=== PATIENT | female | born 1940 | race Caucasian/White ===

== ENCOUNTER → 2024-03-12 12:58 | Outpatient (REF) | payer MEDICARE, OTHER, SELFPAY | LOC: WDC 12:58 | PROVIDERS: ATTENDING PHYSICIAN Nurse Practitioner; FAMILY PHYSICIAN Internal Medicine | DX: Z12.31 Encounter for screening mammogram for malignant neoplasm of breast (principal) | CPT/HCPCS: 77063; 77067 ==

== ENCOUNTER → 2024-11-05 13:48 | Outpatient (REF) | payer MEDICARE, OTHER, SELFPAY ==
[2024-11-05 14:45] LABS: % Basophils 0.6 % (0-2); % Eosinophils 1.7 % (0-6); % Immature Granulocytes 0.4 % (0-0.5); % Monocytes 10.6 % (1.7-9.3); % Neutrophils 63.7 % (42.2-75.2); Absolute Eosinophils 0.1 10^3/uL (0-0.7); Absolute Lymphocytes 1.2 10^3/uL (1.2-3.4); Absolute Monocytes 0.6 10^3/uL (0.1-0.6); Absolute Neutrophils 3.4 10^3/uL (1.4-6.5); Hematocrit 42.4 % (37.0-47.0); Hemoglobin 13.8 g/dL (12.0-16.0); Mean Corp Hgb Conc. 32.5 g/dL (33.0-37.0); Mean Corpuscular Hgb 31.4 pg (27.0-31.0); Mean Corpuscular Volume 96.4 fL (81.0-99.0); Mean Platelet Volume 9.5 fL (7.4-10.4); Nucleated Red Blood Cells % 0 %; Platelet Count 246 10^3/uL (130-400); Red Cell Dist. Width 13.2 % (11.5-14.5); White Blood Cell Count 5.3 10^3/uL (4.8-10.8)
[2024-11-05 15:24] LABS: ALT (SGPT) 15 U/L (0-35); AST (SGOT) 22 U/L (14-36); Albumin 4.9 g/dl (3.5-5.0); Alkaline Phosphatase 93 U/L (38-126); Blood Urea Nitrogen 14 mg/dl (7-17); Calcium 9.9 mg/dl (8.4-10.2); Carbon Dioxide 31 mmol/L (22-30); Chloride 101 mmol/L (98-107); Glucose 90 mg/dl (70-99); Potassium 4.6 mmol/L (3.5-5.1); Sodium 140 mmol/L (135-145); Total Bilirubin 0.6 mg/dl (0.2-1.3); eGFR > 60.00
[2024-11-05 15:55] LABS: TSH 1.88 uIU/ml (0.47-4.68)
== END ==
LOC: REG 13:48
PROVIDERS: ATTENDING PHYSICIAN Nurse Practitioner; FAMILY PHYSICIAN Internal Medicine
DX: R00.1 Bradycardia, unspecified (principal); R53.82 Chronic fatigue, unspecified
CPT/HCPCS: 36415; 80053; 84443; 85025

== ENCOUNTER → 2024-11-19 08:19 | Outpatient (REF) | payer MEDICARE, OTHER, SELFPAY | LOC: HWRCS 08:19 | PROVIDERS: ATTENDING PHYSICIAN Nurse Practitioner; FAMILY PHYSICIAN Internal Medicine | DX: I48.0 Paroxysmal atrial fibrillation (principal); I10 Essential (primary) hypertension; R74.8 Abnormal levels of other serum enzymes | CPT/HCPCS: 78452; 93017; A9500; J2785 ==

== ENCOUNTER → 2025-03-07 13:03 | Outpatient (REF) | payer MEDICARE, OTHER, SELFPAY | LOC: RCS 13:03 | PROVIDERS: ATTENDING PHYSICIAN Internal Medicine Cardiovascular Disease; FAMILY PHYSICIAN Internal Medicine | DX: R00.1 Bradycardia, unspecified (principal) | CPT/HCPCS: 93306 ==

== ENCOUNTER → 2025-04-03 14:20 | Outpatient (REF) | payer MEDICARE, OTHER, SELFPAY | LOC: WDC 14:20 | PROVIDERS: ATTENDING PHYSICIAN Nurse Practitioner | DX: Z12.31 Encounter for screening mammogram for malignant neoplasm of breast (principal) | CPT/HCPCS: 77063; 77067 ==

== ENCOUNTER → 2025-04-17 12:59 | Outpatient (REF) | payer MEDICARE, OTHER, SELFPAY ==
[2025-04-17 14:12] LABS: ALT (SGPT) 14 U/L (0-35); AST (SGOT) 19 U/L (14-36); Albumin 4.4 g/dl (3.5-5.0); Alkaline Phosphatase 86 U/L (38-126); Blood Urea Nitrogen 18 mg/dl (7-17); Calcium 10.3 mg/dl (8.4-10.2); Carbon Dioxide 31 mmol/L (22-30); Chloride 106 mmol/L (98-107); Glucose 91 mg/dl (70-99); Potassium 4.7 mmol/L (3.5-5.1); Sodium 138 mmol/L (135-145); Total Protein 7.2 g/dl (6.3-8.2); eGFR > 60.00
== END ==
LOC: REG 12:59
PROVIDERS: ATTENDING PHYSICIAN Nurse Practitioner
DX: I48.0 Paroxysmal atrial fibrillation (principal)
CPT/HCPCS: 36415; 80053

== ENCOUNTER → 2025-05-23 09:11 | Outpatient (REF) | payer MEDICARE, OTHER, SELFPAY ==
[2025-05-23 09:56] LABS: Hematocrit 31.5 % (37.0-47.0); Hemoglobin 9.9 g/dL (12.0-16.0); Mean Corp Hgb Conc. 31.4 g/dL (33.0-37.0); Mean Corpuscular Volume 94.3 fL (81.0-99.0); Nucleated Red Blood Cells % 0 %; Platelet Count 255 10^3/uL (130-400); Red Cell Dist. Width 13.4 % (11.5-14.5)
[2025-05-23 10:34] LABS: ALT (SGPT) 16 U/L (0-35); AST (SGOT) 19 U/L (14-36); Albumin 4.3 g/dl (3.5-5.0); Alkaline Phosphatase 78 U/L (38-126); Blood Urea Nitrogen 15 mg/dl (7-17); Calcium 10.2 mg/dl (8.4-10.2); Carbon Dioxide 28 mmol/L (22-30); Chloride 106 mmol/L (98-107); Glucose 93 mg/dl (70-99); Iron 43 ug/dl (37-170); Potassium 5.0 mmol/L (3.5-5.1); Sodium 139 mmol/L (135-145); Total Protein 7.1 g/dl (6.3-8.2); eGFR > 60.00
[2025-05-23 10:57] LABS: Total Iron Binding Capacity 432 ug/dl (265-497)
[2025-05-23 11:09] LABS: Ferritin 11.4 ng/ml (11.1-264.0)
== END ==
LOC: REG 09:11
PROVIDERS: ATTENDING PHYSICIAN Internal Medicine; REFERRING PHYSICIAN Internal Medicine Cardiovascular Disease
DX: I48.0 Paroxysmal atrial fibrillation (principal); D64.9 Anemia, unspecified
CPT/HCPCS: 36415; 80053; 82728; 83540; 83550; 85025

== ENCOUNTER 2025-05-28 06:44 | Day surgery (SDC) | payer MEDICARE, OTHER, SELFPAY ==
[2025-05-29 06:00] VITALS: BMI 33.5
[2025-05-29 06:37] VITALS: BP 160/75
[2025-05-29 06:52] VITALS: BP 169/71
[2025-05-29 07:07] VITALS: BP 172/79
[2025-05-29 07:10] VITALS: BP 160/75
== END 2025-05-28 09:54 | disposition home or self-care (01) ==
LOC: CATH 06:44
PROVIDERS: ATTENDING PHYSICIAN Internal Medicine Cardiovascular Disease; FAMILY PHYSICIAN Internal Medicine; OTHER PHYSICIAN Internal Medicine Cardiovascular Disease
DX: Z01.810 Encounter for preprocedural cardiovascular examination (principal); I35.8 Other nonrheumatic aortic valve disorders; I48.0 Paroxysmal atrial fibrillation; I10 Essential (primary) hypertension; E78.5 Hyperlipidemia, unspecified
CPT/HCPCS: 93312; 93320; 93325

== ENCOUNTER 2025-05-29 09:46 | Inpatient (IN) | payer MEDICARE, OTHER, SELFPAY ==
[2025-05-29] VITALS (18 sets, daily range): BP systolic 111–161; BP diastolic 54–76; BMI 33.5
[2025-05-29 08:47] LABS: ACT-LR - POC 255 Seconds (116-155)
[2025-05-29 09:06] LABS: ACT-LR - POC 303 Seconds (116-155)
[2025-05-29 09:25] LABS: ACT-LR - POC 327 Seconds (116-155)
[2025-05-29] MEDS: TYLENOL 650 MG PO ×2 (10:55→22:42)
--- NOTE | 2025-05-29 12:01 | ITS.CL.ABL ---
Distance Learning Administrator - Ablation
Ablation
Procedure Report:
ELECTROPHYSIOLOGIC STUDY AND POSSIBLE ABLATION
DATE: May 29, 2025
Primary Care Provider: Talya Robb
INDICATION:
Symptomatic Atrial Fibrillation.
Paroxysmal
HISTORY: See H and P.
Symptomatic AF, poorly controlled with attempted medical therapy
Multiple episodes of epistaxis starting 04/17/2025. Continued to have recurrences despite packing, cauterization, and holding anticoagulation.�
Recurrent rapid atrial fibrillation 05/06/2025 and was hospitalized at [facility]. Started on sotalol and converted to SR
Given the recurrent serious bleeding events she has experienced, she was initially maintained off of anticoagulation. At her office visit May 23, 2025 I instructed her to resume Eliquis 5 mg twice daily to assess safety of at least short-term
anticoagulation and she has had no recurrent epistaxis in the short timeframe. She underwent transesophageal echo May 28, 2025 demonstrating no left atrial appendage thrombus.
HAS-BLED: 2
Age
H/O Bleeding
CHADSVASc: 4
HTN
Age
F Gender
PRESENTING RHYTHM: SR
HISTORY: See H and P.
Symptomatic AF, poorly controlled with attempted medical therapy.
Antiarrhythmic drug therapy: Sotalol 40 mg twice daily
ANTICOAGULATION: Eliquis 5 mg twice daily
'TIME-OUT': called and confirmed.
SEDATION/ANESTHESIA: provided via the anesthesia department using general anesthesia.
PROCEDURE:
Ultrasound Guidance with real-time visualization of needle insertion and vessel patency performed by in for femoral venous Vascular Access.
Under real-time US guidance, the needle was advanced with negative pressure into the vein. The needle was seen entering the vessel lumen with a good return of dark red flow, the syringe was removed, non-pulsatile, dark red blood low was noted and
the wire was passed without difficulty, then the needle was removed. US confirmed the wire was in the vein, not going into an artery,
Images were taken and saved for the patient's permanent record. Imaging findings typical femoral venous anatomy. Direct visualization of needle puncture into the femoral vein was observed and recorded.
3 sheaths were inserted into the right femoral vein.
10 Fr, 10Fr, 7 Fr a 10fr sheath was then exchanged for the 16.8 Fr Faradrive deflectable sheath and dilator over a wire.
A decapolar CS catheter was positioined within the CS for mapping and pacing.
The intracardiac ultrasound catheter was positioned in the RA for continuous intracardiac ultrasound imaging.
Heparin bolus and infusion to target ACT at 300 -350 seconds was administered. Transseptal puncture was performed. This entailed advancing a sheath with dilator into the superior vena cava and withdrawing both (monitoring intracardiac ultrasound,
fluoroscopy and tip pressure) with the tip oriented toward the atrial septum. The fossa ovalis was engaged (indicated by sudden displacement of the sheath tip as well as tenting of the fossa seen on intracardiac ultrasound).
The Evernote transseptal system was used. Left atrial catheter position was confirmed by echocardiographic imaging and fluoroscopy followed by RF delivery using the [employer] system resulting in successful LA access with pressure monitoring
demonstrating LA pressure waveforms (LA mean pressure 13mm Hg). The sheath was advanced over the dilator and positioned in the left atrium.
The Grissom Grid multipolar mapping catheter was initially positioned through the transseptal sheath for high density mapping.
Geometry and voltage mapping was performed using the Grissom multipolar grid catheter. Ensite-X was utilized for three-dimensional electroanatomical mapping.
A 3-D map was created using Ensite-X in Voxel mode. A 3-D reconstructed CT image was compared to the 3-D Navex map to assist in anatomic evaluation, mapping and ablation.
The Evernote PFA catheter and system was used for cardiac ablation. Catheter positioning was guided and confirmed using both I.C.E. and fluoroscopy.
Ablation strategy included PVI as well as mapping for extra PV contributors to atrial fibrillation which would also be targeted if present.
High density electroanatomical three-dimensional mapping demonstrated four PVs: LSPV, LIPV, RSPV, RIPV.
After accomplishing pulmonary venous isolation, mapping identified additional areas likely to be extra PV contributors to atrial fibrillation. These areas demonstrated patchy low voltage as well as complex fractionated electrograms. These areas can
be sites for the formation of rotors which can drive and maintain atrial fibrillation. These areas are known to be significant contributors to initiation and perpetuation of atrial fibrillation.
Additional energy applications/additional ablation sets targeted extra PV contributors to atrial fibrillation.
Targets for additional PFA ablation included:
LA posterior wall targeted with pulsed electric field energy isolating the posterior wall of the left atrium
After ablation of the posterior wall, additional targets were addressed:
LA inferior floor
These areas were ablated using pulsed electric field energy eliminating the extra PV contributors to atrial fibrillation.
Post ablation mapping finds entrance and exit block at each of the pulmonary veins (LSPV, LIPV, RSPV, RIPV), the LA posterior wall and at the additional line at Inferior/floor of the LA rendering the sites no longer able to contribute to atrial
fibrillation.
Programmed electrostimulation including burst atrial pacing as well the delivery of decremental extrastimuli down to atrial effective refractory period and no sustained arrhythmias could be induced.
I.C.E. :
Pre-Ablation Post-Ablation
LVEF: 55% 55%
WMA: None none
Pericardial effusion: None none
LA Pressure mmHg 13 9
COMPLICATIONS:
None
SUMMARY:
- Mapping and ablation to isolate the PVs resulting in electrical isolation of the pulmonary veins
- Additional AF ablation sets X 2 after PVI 2 (LA posterior wall, Inf/floor of the LA posterior wall) resulting in elimination of the targeted extra PV contributors to atrial fibrillation.
- 3-D Electroanatomical Mapping
- Intracardiac Ultrasound
- Ultrasound guidance for vascular access
I discussed today's findings and results with the patient's son, Iggy.
RECOMMENDATIONS:
- Proceed with planned Watchman JERRY occlusion
Copy to: Talya Robb
--- NOTE | 2025-05-29 12:16 | WATCHMAN.MD ---
Watchman Implant
-
WATCHMAN LEFT ATRIAL APPENDAGE CLOSURE DEVICE REPORT
Date: May 29, 2025
Primary Care Provider: Dr. Talya Robb
INDICATION:
Symptomatic Atrial Fibrillation.
Paroxysmal
HISTORY: See H and P.
Symptomatic AF, poorly controlled with attempted medical therapy
Multiple episodes of epistaxis starting 04/17/2025. Continued to have recurrences despite packing, cauterization, and holding anticoagulation.�
Recurrent rapid atrial fibrillation 05/06/2025 and was hospitalized at [facility]. Started on sotalol and converted to SR
Given the recurrent serious bleeding events she has experienced, she was initially maintained off of anticoagulation. At her office visit May 23, 2025 I instructed her to resume Eliquis 5 mg twice daily to assess safety of at least short-term
anticoagulation and she has had no recurrent epistaxis in the short timeframe. She underwent transesophageal echo May 28, 2025 demonstrating no left atrial appendage thrombus.
Watchman Team:
NEGIN: Dr Marilyn M.D.
Implanter: Dr Jason Sinha M.D.
Procedure: Watchman left atrial appendage closure.
(Concomitant after PVI this morning)
The patient was placed under general anesthesia by anesthesia.
A NEGIN probe was placed.
Heparin was administered to goal ACT 350-400 seconds. Fluid bolus was given.
Dr Jason Sinha positioned and deployed the Watchman device.
A 5 Namibian curved pigtail was then substituted for the guidewire through the watchman sheath to the ostium of the left atrial appendage. The 5 Namibian pigtail was advanced into the left atrial appendage and angiography was performed. This allowed
additional measurements assessing left atrial appendage ostium size and JERRY morphology.
The pigtail catheter was removed from the access sheath. A 27 mm Watchman device was flushed and then placed into the watchman access sheath and advanced through the sheath. The Watchman was clamped into the sheath. The device was deployed into
the left atrial appendage.
The PASS criteria were met. The stability tug test was performed and passed. Angiography and transesophageal echocardiogram revealed no leaks nor jets. The position was confirmed on angiography and transesophageal echo and there were no
significant shoulders. Compression ranges from 21% to 26%.
After meeting the PASS release criteria the device was released into the left atrial appendage.
The watchman access sheath was then removed through the transseptal into the IVC. A figure 8 suture closure was performed at the site of the femoral venous puncture and the sheath as it was removed.
Impression:
- Successful Deployment of 27 mm WATCHMAN left atrial appendage closure device
Recommended anticoagulation strategy for this specific patient is:
- Eliquis 5 mg twice daily (given recurrent large epistaxis, will not add aspirin at this time)
- Transesophageal echocardiogram at 3 months post procedure will be used to assess for any device related thrombus, assess for any leaks, and aid in the decision making regarding altering anticoagulation/antiplatelet recommendations.
At post procedure NEGIN leaks > 5mm are significant and require chronic full anticoagulation or consideration for leak closure.
Katherine-device leaks between 3 and 5 mm may also carry an increased risk. These patients will need individualized risk assessment and discussion with Watchman team.
Leaks < 3 mm are generally considered non-significant.
If there is no leak of 3 mm or greater, we will plan to stop oral anticoagulation.
With leak of any size suggestion is to check NEGNI 12 mo out from implant.
While the overall risk of device related infection for Watchman device is very low, we recommend SBE prophylaxis with amoxicillin for the first 6 months after device implantation until the device is more completely endothelialized. After the first
6 months, the risk of infection associated with a device is further reduced and routine antibiotic prophylaxis is not mandatory but can be decided on an individual case basis.
Continue cardiovascular care with Dr. Caty Sung, DYEING MACHINE FEEDER on September 02, 2025
cc:
Dr. Talya Robb
--- NOTE | 2025-05-29 14:24 | PTCARENOTE ---
Received patient at 1320 following PVI and watchman via right femoral vein. Patient maintained flat bedrest x 4 hours, sutures now clipped from the right groin. Right groin dressing is dry and intact, area is soft with no signs of hematoma and a
strong pedal pulse is palpable. Oriented to the room and plan of care, call cardona in reach, waiting for lunch.
--- NOTE | 2025-05-29 16:50 | CM ---
Reviewed chart. Met with Mrs. Thibodeaux to review discharge plans. She states prior to admission she resides alone in a fourth floor apartment with an elevator. She states prior to admission she was independent with ambulation and adls.. She
states she does not have any DME in the home. She states she has a prescription plan with [facility] and uses [facility] pharmacy and mail order. The discharge plan is to return home when medically stable.
[2025-05-29] MEDS: NORVASC 5 MG PO (17:17)
--- NOTE | 2025-05-29 18:34 | PTCARENOTE ---
Patient assisted oob to the chair for dinner, Right groin dressing is dry and intact, VSS. Dr. Sinha in to see the patient, visiting with her family now.
[2025-05-29] MEDS: ELIQUIS 5 MG PO (19:43)
[2025-05-29] MEDS: BETAPACE 40 MG PO (19:43)
--- NOTE | 2025-05-29 22:03 | PTCARENOTE ---
Patient received at change of shift out of bed to the chair. Right groin site with gauze and tegaderm C/D/I. Pedal pulse palpable. The patient endorses some tenderness to the groin site which is soft to palpation and no ecchymosis is present. The
tenderness is currently acceptable to the patient, declines PRN pain medication at this time. Sinus rhythm on telemetry. Oxygen saturation 94-95% on room air. Patient ambulated to the bathroom to void, standby assist. Plan of care discussed. Call
cardona within reach. Care ongoing.
[2025-05-29] MEDS: DESYREL 100 MG PO (22:46)
[2025-05-30 02:53] VITALS: BP 141/55
[2025-05-30 04:07] LABS: Hematocrit 27.9 % (37.0-47.0); Hemoglobin 8.9 g/dL (12.0-16.0); Mean Corp Hgb Conc. 31.9 g/dL (33.0-37.0); Mean Corpuscular Volume 90.9 fL (81.0-99.0); Platelet Count 316 10^3/uL (130-400); Red Cell Dist. Width 14.7 % (11.5-14.5)
[2025-05-30 04:34] LABS: Blood Urea Nitrogen 19 mg/dl (7-17); Calcium 9.8 mg/dl (8.4-10.2); Carbon Dioxide 26 mmol/L (22-30); Chloride 109 mmol/L (98-107); Estimated Creatinine Clearance 72 ml/min; Glucose 113 mg/dl (70-99); Magnesium 2.2 mg/dl (1.6-2.3); Potassium 4.2 mmol/L (3.5-5.1); Sodium 138 mmol/L (135-145); eGFR > 60.00
[2025-05-30 07:19] VITALS: BP 119/55
[2025-05-30] MEDS: ELIQUIS 5 MG PO (08:50)
[2025-05-30] MEDS: BETAPACE 40 MG PO (08:50)
[2025-05-30] MEDS: FLUSH (NSS) 1 FLUSH IV (08:52)
[2025-05-30] MEDS: PROTONIX 40 MG PO (08:52)
[2025-05-30] MEDS: NORVASC 5 MG PO (08:52)
--- NOTE | 2025-05-30 09:43 | W.PN.CARDCBS ---
Addendum entered and electronically signed by Jason Sinha MD 05/30/25 14:16:
Patient seen, interviewed and examined by me.
She describes feeling quite well. She has had no chest pain shortness of breath palpitations or dizziness overnight. She has been up and ambulating and feels well this morning.
Well-appearing, no acute distress
Regular rate and rhythm with normal S1 and S2, no S3 no S4. There is a grade 1/6 apical holosystolic murmur and no rubs. PMI is normally placed.
Lungs are clear to auscultation bilaterally without wheezes rales or rhonchi.
Abdomen soft nontender nondistended with normoactive bowel sounds
Right groin with no hematoma or bruits, no bleeding.
Extremities show trace pretibial edema bilaterally no clubbing or cyanosis.
Neurologic exam is grossly nonfocal.
She underwent PVI with PFA followed by watchman implantation (27 mm watchman flex device) yesterday May 29, 2028 with no immediate periprocedural complications noted.
She is very concerned about her ongoing bleeding risk related to recurrent epistaxis but she has not had any epistaxis since her most recent resumption of Eliquis.
I discussed with her the importance of maintaining Eliquis 5 mg twice daily unless she has significant recurrent bleeding in which case she should stop Eliquis and alert our office immediately.
Otherwise we will plan to maintain Eliquis 5 mg twice daily at least until we assess echocardiogram in 3 months. If echocardiogram in 3 months shows a well-seated device with no device related thrombus and no significant leaks anticoagulation can
be stopped in favor of aspirin 81 mg daily.
She understands these instructions. We also reviewed activity instructions such as no heavy lifting exercise or yard work for 5 days. She understands and agrees.
All of her questions have been answered.
She is stable for discharge to home today.
Original Note:
Today's Communication / Plan
-
post PVI and watchman
OAC until f/u NEGIN
stable for d/c home
Impression / Plan
-
Primary Care Provider: Talya Robb MD
Primary sock knitter: Jason Sinha MD
Impression:
Symptomatic paroxysmal Afib
recurrent epistaxis requiring cauterization
post PVI 05/29/25
post Watchman 27mm device implant 05/29/25
Chronic Anemia
Breast cancer post lumpectomy and XRT 2009
Arthritis
Plan:
post ablation and watchman implant feels good
groin stable
tele SR/SB with occasional PAC's
OAC Eliquis
Hbg 9.9 ->8.9, low due to recent epistaxis, will recheck CBC in 1 week
continue sotalol and metoprolol PRN
f/u NEGIN in 3 mo
Activity restrictions reviewed
f/u Dr. Mcleod in 3 mo
home today
Progress Note - Pie Filling Mixer
Subjective
Date of Service: May 30, 2025
denies cp, sob
Objective
Labs:
05/30/25 03:02
05/30/25 03:02
Labs
Hgb 8.9 g/dL (12.0-16.0) L 05/30/25 03:02
Hct 27.9 % (37.0-47.0) L 05/30/25 03:02
Plt Count 316 10^3/uL (130-400) D 05/30/25 03:02
Sodium 138 mmol/L (135-145) 05/30/25 03:02
Potassium 4.2 mmol/L (3.5-5.1) 05/30/25 03:02
BUN 19 mg/dl (7-17) H 05/30/25 03:02
Creatinine 0.6 mg/dL (0.6-1.0) 05/30/25 03:02
Glucose 113 mg/dl (70-99) H 05/30/25 03:02
Vital Signs and I&O:
Vital Signs
Temp Pulse Resp BP Pulse Ox
98 F 72 20 119/55 94
05/30/25 07:19 05/30/25 08:00 05/30/25 07:19 05/30/25 07:19 05/30/25 07:19
Vital Signs
Temp Pulse Resp BP Pulse Ox
98 F 72 20 119/55 94
05/30/25 07:19 05/30/25 08:00 05/30/25 07:19 05/30/25 07:19 05/30/25 07:19
Intake & Output
05/28/25 05/29/25 05/30/25 05/31/25
06:59 06:59 06:59 06:59
Intake Total 480 / 480
Output Total 200 / 200
Balance 280 / 280
Physical Exam
Physical Exam
NAD, AOX3
S1, S2, RRR
CTAB, non labored
SNTND bsx4
R fem site c/d/i no HT, soft, trace ecchymosis
--- NOTE | 2025-05-30 09:46 | PTCARENOTE ---
Patient offers no complaints this morning, right groin dressing is dry and intact with a palpable right pedal pulse. Patient seen by Dr. Sinha and is ok for discharge. Waiting for her [id number] to pick her up.
--- NOTE | 2025-05-30 09:53 | CM ---
Reviewed chart.Met with Mrs. Thibodeaux to review discharge plans. She states she feels well and maybe able to go home soon. Prior to admission she resides alone in a fourth floor apartment with an elevator. Prior to admission she was independent
with ambulation and adls.. She does not have any DME in the home. She has a prescription plan with [employer] and uses [facility] pharmacy and mail order. The discharge plan is to return home when medically stable.
--- NOTE | 2025-05-30 10:45 | PTCARENOTE ---
Reviewed discharge instructions with the patient and she states her understanding. Aware she should have a follow up CBC in one week and aware of follow up appointments. Discharged home with her DIL.
--- NOTE | 2025-05-30 11:39 | W.DS.TRANS ---
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
-
Discharge Instructions:
Discharge Diagnosis/Procedures AFib, s/p ablation + watchman device implant
Diet Low Cholesterol
Driving Restrictions No driving for 24 hours
Blood Work Check CBC in 1 week
Others Tests Your 3 month NEGIN - 09/12/25. You will get a
phone call with instructions and time of arrival
Instructions:
Stand-Alone Forms: DC Instructions- Cath/EP Lab
Changes to Home Medications: No
Discharge Medications:
DC Medications w/original date entered in Layer
psyllium husk 0.4 gram capsule (Metamucil) 0.4 g PO BID Constipation 10/14/22
apixaban 5 mg tablet (Eliquis) 5 mg PO BID #60 tabs 10/15/22
evolocumab 140 mg/mL subcutaneous syringe (Repatha Syringe) 140 mg SC Q2W High Cholesterol 05/28/25
sodium chloride 0.65 % nasal spray aerosol (Saline Nasal) 2 spray intranasal Q4H PRN Cytokine Release Syndrome 05/28/25
sotalol 80 mg tablet 40 mg PO BID 05/28/25
amlodipine 5 mg tablet 5 mg PO DAILY Blood Pressure 05/29/25
metoprolol succinate 100 mg tablet,extended release 24 hr 50 mg PO BIDPRN PRN palpitations 05/29/25
omeprazole 40 mg capsule,delayed release 40 mg PO DAILY Gastrointestinal Issue 05/29/25
oxybutynin chloride 5 mg tablet 5 mg PO DAILYPRN PRN overactive bladder 05/29/25
trazodone 100 mg tablet 100 mg PO HS 05/29/25
Home Medication Changes
Pending Results: No
== END 2025-05-30 11:17 | disposition home or self-care (01) | DRG 317 ==
LOC: IVU 09:46
PROVIDERS: Internal Medicine Cardiovascular Disease; Physician Assistant Medical; ADMITTING PHYSICIAN Internal Medicine Cardiovascular Disease; REFERRING PHYSICIAN Internal Medicine Interventional Cardiology
PROC: B24BZZ4 Ultrasonography of Heart with Aorta, Transesophageal (ICD-10-PCS; 2025-05-29)
PROC: 02583ZF Destruction of Conduction Mechanism using Irreversible Electroporation, Percutaneous Approach (ICD-10-PCS; 2025-05-29)
PROC: 02K83ZZ Map Conduction Mechanism, Percutaneous Approach (ICD-10-PCS; 2025-05-29)
PROC: 02L73DK Occlusion of Left Atrial Appendage with Intraluminal Device, Percutaneous Approach (ICD-10-PCS; 2025-05-29)
DX: I48.0 Paroxysmal atrial fibrillation (principal); Z00.6 Encounter for examination for normal comparison and control in clinical research program; Q21.12 Patent foramen ovale; D64.9 Anemia, unspecified; M19.90 Unspecified osteoarthritis, unspecified site; Z85.3 Personal history of malignant neoplasm of breast; Z92.3 Personal history of irradiation; Z90.10 Acquired absence of unspecified breast and nipple; I10 Essential (primary) hypertension; Z79.01 Long term (current) use of anticoagulants; Z88.2 Allergy status to sulfonamides
CPT/HCPCS: 33340; 80048; 83735; 85027; 85347; 86850; 86900; 86901; 93005; 93312; 93320; 93325; 93355; 93656; 93657; C1732; C1733; C1766; C1769; C1892; C1894; Q9967

== ENCOUNTER 2025-09-12 06:28 | Day surgery (SDC) | payer MEDICARE, OTHER, SELFPAY ==
[2025-09-12 07:32] VITALS: BMI 32.0
== END 2025-09-12 09:15 | disposition home or self-care (01) ==
LOC: CATH 06:28
PROVIDERS: ATTENDING PHYSICIAN Internal Medicine Cardiovascular Disease; FAMILY PHYSICIAN Internal Medicine; OTHER PHYSICIAN Internal Medicine Cardiovascular Disease
DX: Z45.09 Encounter for adjustment and management of other cardiac device (principal); I70.0 Atherosclerosis of aorta; I08.3 Combined rheumatic disorders of mitral, aortic and tricuspid valves; I48.0 Paroxysmal atrial fibrillation; Z79.01 Long term (current) use of anticoagulants; Z79.899 Other long term (current) drug therapy
CPT/HCPCS: 93312; 93320; 93325